=== PATIENT | male | born 1940 | race Caucasian/White ===

== ENCOUNTER 2019-05-02 02:29 | Inpatient (IN) | payer MEDICARE, BC ==
[2019-05-02] VITALS (11 sets, daily range): BP systolic 107–149; BP diastolic 68–92
[~2019-05-02] VITALS: Ht 177.8 cm; Wt 75.5 kg
[2019-05-02 02:52] LABS: BASOPHILS % (AUTO) 0.3 % (0-1); EOSINOPHILS % (AUTO) 0.2 % (0-6); HEMATOCRIT 28.9 % (42.0-52.0); HEMOGLOBIN 9.8 g/dl (14.0-17.9); LYMPHOCYTES # (AUTO) 0.4 X10'3 (1.1-4.8); LYMPHOCYTES % (AUTO) 5.6 % (21-51); MEAN CORPUSCULAR HEMOGLOBIN 25.5 PG (27.0-31.0); MEAN CORPUSCULAR VOLUME 75.1 FL (78-98); MEAN PLATELET VOLUME 7.2 FL (7.4-10.4); MONOCYTES # (AUTO) 0.4 X10'3 (0-0.9); MONOCYTES % (AUTO) 5.5 % (2-12); NEUTROPHILS # (AUTO) 6.9 X10'3 (1.8-7.7); NEUTROPHILS % (AUTO) 88.4 % (42-75); PLATELET COUNT 215 X10'3 (140-440); RED BLOOD COUNT 3.84 X10'6 (4.70-6.10); WHITE BLOOD COUNT 7.8 X10'3 (4.5-11.0)
--- NOTE | 2019-05-02 02:59 | NUR ---
Dr. Aguilar notified of bladder scan showing >999 mL urine. Order for quintana catheter given by Dr. Aguilar.
[2019-05-02 03:08] LABS: CLARITY,URINE CLEAR (Clear); COLOR,URINE YELLOW (Yellow); GLUCOSE, URINE NEGATIVE (Neg); KETONES,URINE TRACE mg/dl (Neg); LEUKOCYTE ESTERASE ,URINE NEGATIVE (Neg); NITRITES, URINE NEGATIVE (Neg); OCCULT BLOOD,URINE NEGATIVE (Neg); PROTEIN,URINE 30 mg/dl (Neg); UROBILINOGEN,URINE 0.2 E.U/dL (0.2-1.0)
[2019-05-02 03:08] LABS: ALANINE AMINOTRANSFERASE 47 U/L (12-78); ALBUMIN 3.6 G/DL (3.4-5.0); ALBUMIN/GLOBULIN RATIO 1.2 (1.1-1.5); ALKALINE PHOSPHATASE 72 IU/L (46-116); ANION GAP 11 (8-16); ASPARTATE AMINO TRANSFERASE 22 U/L (10-37); BILIRUBIN,TOTAL 0.7 MG/DL (0.1-1.0); BLOOD UREA NITROGEN 11 MG/DL (7-18); BUN/CREATININE RATIO 12.6 (5.4-32.0); CHLORIDE 79 MMOL/L (99-107); CREATININE 0.87 MG/DL (0.60-1.10); GLUCOSE 162 MG/DL (70-104); MAGNESIUM 1.4 MG/DL (1.5-2.4); PHOSPHORUS 3.6 MG/DL (2.3-4.5); POTASSIUM 4.4 MMOL/L (3.5-5.1); TOTAL CARBON DIOXIDE 23.5 MMOL/L (24-32); TOTAL PROTEIN 6.5 G/DL (6.4-8.2); eGFR 85 ML/MIN
[2019-05-02 03:11] LABS: SODIUM 113 MMOL/L (135-145)
[2019-05-02 03:15] LABS: UA COLLECTION TYPE FOLEY CATH
[2019-05-02 03:17] LABS: BACTERIA,URINE NONE SEEN /HPF (Neg); MUCUS STRANDS NONE SEEN /LPF (Neg); RBC,URINE 0-2 /HPF (0-2); SQUAMOUS EPITHELIAL CELL,UR FEW /LPF (FEW); WBC,URINE NONE SEEN /HPF (0-4)
[2019-05-02] MEDS ORDERED: DOXA2TAB2 PO (03:30)
[2019-05-02] MEDS ORDERED: ATOR10TA70 PO (03:30)
[2019-05-02] MEDS ORDERED: NORT10CA5 PO (03:30)
[2019-05-02] MEDS ORDERED: METF500T PO (03:30)
[2019-05-02] MEDS ORDERED: LEUP45SY IM (03:30)
[2019-05-02] MEDS ORDERED: DILT-36 PO (03:30)
[2019-05-02] MEDS ORDERED: LEVO88TA2 PO (03:30)
[2019-05-02] MEDS ORDERED: ASPI-1265 PO (03:30)
[2019-05-02] MEDS ORDERED: DULO-31 PO (03:30)
[2019-05-02] MEDS ORDERED: DOXA4TAB3 PO (03:30)
[2019-05-02] MEDS ORDERED: BICA50TA7 PO (03:30)
[2019-05-02] MEDS ORDERED: LEUPROLIDE ACETATE 45 MG IM SCH (03:45)
[2019-05-02] MEDS ORDERED: normal saline 1000ml 1,000 ML IV SCH (03:46)
[2019-05-02] MEDS ORDERED: HYDROcodone/acetaminophen 5mg/325mg tablet PO PRN (03:50)
[2019-05-02] MEDS ORDERED: mag hydrox/Alum hydrox/simeth 30ml oral suspension PO PRN (03:50)
[2019-05-02] MEDS ORDERED: MESSAGE TO PHARMACY PO ONE (03:50)
[2019-05-02] MEDS ORDERED: magnesium hydroxide 30ml (MOM) UD suspension PO PRN (03:50)
[2019-05-02] MEDS ORDERED: glucagon, human recombinant 1mg kit SUBCUT PRN (03:50)
[2019-05-02] MEDS ORDERED: morphine 2 MG/ML inj. syringe IV PRN ×2 (03:50)
[2019-05-02] MEDS ORDERED: dextrose 50%-water 50ml dispensing syringe IV PRN ×2 (03:50)
[2019-05-02] MEDS ORDERED: dextrose ORAL solution 15 GM/59 ML bottle PO PRN ×2 (03:50)
[2019-05-02] MEDS ORDERED: acetaminophen 325mg tablet PO PRN (03:50)
[2019-05-02] MEDS ORDERED: ondansetron/PF 4mg/2ml inj IV PRN (03:50)
[2019-05-02 04:12] LABS: HEMOGLOBIN A1C 6.9 % (4.5-6.2)
--- NOTE | 2019-05-02 06:00 | NUR ---
Patient in room ORTHO 4023. I have received report from Johanna SCHOFIELD and had the opportunity to ask questions and assume patient care.
--- NOTE | 2019-05-02 06:11 | NUR ---
REPORT GIVEN TO CHANDU ALATORRE.
--- NOTE | 2019-05-02 06:13 | NUR ---
Patient in room ORTHO 4023. I have received report from Marie and had the opportunity to ask questions and assume patient care. Addendum: 05/02/19 at 0614 by Michael WHITEHEAD Amended: Links added.
--- NOTE | 2019-05-02 07:53 | NUR ---
PAGER ID: [phone] MESSAGE: RE: [id number] Esequiel Peter. Magnesium is 1.4, do you want him on K/MG replacement? [place] [id number]
[2019-05-02] MEDS ORDERED: duloxetine 30mg CAPSULE.DR PO SCH (08:00)
[2019-05-02] MEDS: LEVOTHYROXINE 88 MCG PO SCH (08:00)
[2019-05-02] MEDS ORDERED: levoTHYROXINE 88mcg tablet PO SCH (08:00)
[2019-05-02] MEDS ORDERED: metFORMIN 500mg tablet PO SCH (08:00)
[2019-05-02] MEDS: atorvastatin 10mg tablet PO SCH (08:07)
[2019-05-02] MEDS: aspirin 81mg tab.chew PO SCH (08:09)
[2019-05-02] MEDS: diltiazem CD 180mg cap (once-daily) PO SCH (08:09)
[2019-05-02] MEDS: doxazosin mesylate 2mg tablet PO SCH ×2 (08:10→20:00)
[2019-05-02] MEDS ORDERED: magnesium 4gm in 100ml NS 100 ML IV PRN (08:15)
[2019-05-02] MEDS ORDERED: potassium Cl 20 mEq SR tablet PO PRN ×2 (08:15)
[2019-05-02] MEDS ORDERED: potassium CL 10mEq/100ml bag 100 ML IV PRN (08:15)
[2019-05-02] MEDS ORDERED: magnesium Cl slow-release 64mg tablet PO PRN (08:15)
[2019-05-02] MEDS: heparin, porcine 5000 units/ml vial SQ SCH ×2 (08:15→19:59)
[2019-05-02 09:18] LABS: ALBUMIN 3.2 G/DL (3.4-5.0); ANION GAP 6 (8-16); BLOOD UREA NITROGEN 13 MG/DL (7-18); BUN/CREATININE RATIO 16.3 (5.4-32.0); CALCIUM 8.3 MG/DL (8.5-10.1); CHLORIDE 80 MMOL/L (99-107); GLUCOSE 174 MG/DL (70-104); TOTAL CARBON DIOXIDE 27.1 MMOL/L (24-32); eGFR > 90 ML/MIN
[2019-05-02 09:23] LABS: SODIUM 113 MMOL/L (135-145)
--- NOTE | 2019-05-02 09:29 | NUR ---
PAGER ID: [phone] MESSAGE: RE: [id number] Esequiel Peter. Critical lab; NA 113, no change from 6 hours ago. Patient on NS@[address] [place] [address] [id number]
[2019-05-02 09:42] LABS: % IRON SATURATION 4 % (11-46); IRON 13 UG/DL (53-167); TOTAL IRON BINDING CAPACITY 358 UG/DL (259-388)
[2019-05-02 11:33] LABS: SODIUM,URINE RANDOM 20 MEQ/L
[2019-05-02 11:35] LABS: OSMOLALITY UA 473 MOSM/K (50-1400)
--- NOTE | 2019-05-02 11:46 | NUR ---
DM Consult: Pt A1C <7 and not appropriate for DM ed at this time. Addendum: 05/02/19 at [address] Amended: Links added.
--- NOTE | 2019-05-02 11:47 | NUR ---
Student Medication Administration:For this medication-pass time frame [id number], all medications were reviewed,administered and documented per hospital policy by Michael Puente. Student documentation:I have reviewed and agree with all interventions, assessments performed and documented by Michael Puente.
--- NOTE | 2019-05-02 12:29 | NUR ---
Problems reprioritized. Patient report given, questions answered & plan of care reviewed with Marie. Addendum: 05/02/19 at 1229 by Michael WHITEHEAD Amended: Links added.
[2019-05-02] MEDS: iron sucrose complex injection 200 MG in normal saline 100ml IV soln 100 ML IV SCH (14:11)
[2019-05-02] MEDS ORDERED: sodium chloride 3% IV.soln 100 ML IV SCH (15:00)
[2019-05-02 15:02] LABS: ALBUMIN 3.1 G/DL (3.4-5.0); ANION GAP 2 (8-16); BLOOD UREA NITROGEN 12 MG/DL (7-18); CALCIUM 8.4 MG/DL (8.5-10.1); CHLORIDE 83 MMOL/L (99-107); CREATININE 0.92 MG/DL (0.60-1.10); GLUCOSE 155 MG/DL (70-104); POTASSIUM 4.4 MMOL/L (3.5-5.1); TOTAL CARBON DIOXIDE 27.2 MMOL/L (24-32); eGFR 80 ML/MIN
[2019-05-02 15:04] LABS: SODIUM 112 MMOL/L (135-145)
--- NOTE | 2019-05-02 15:50 | NUR ---
Transferred patient to ICU room 2040. Gave report to Maris SCHOFIELD. All belongings sent down with patient
--- NOTE | 2019-05-02 16:00 | NUR ---
Received patient from Ortho floor.
[2019-05-02 16:08] LABS: ALBUMIN 3.2 G/DL (3.4-5.0); ANION GAP 6 (8-16); BLOOD UREA NITROGEN 13 MG/DL (7-18); BUN/CREATININE RATIO 14.3 (5.4-32.0); CALCIUM 8.4 MG/DL (8.5-10.1); CHLORIDE 82 MMOL/L (99-107); CREATININE 0.91 MG/DL (0.60-1.10); GLUCOSE 149 MG/DL (70-104); POTASSIUM 4.3 MMOL/L (3.5-5.1); TOTAL CARBON DIOXIDE 25.4 MMOL/L (24-32); eGFR 81 ML/MIN
[2019-05-02 16:12] LABS: SODIUM 113 MMOL/L (135-145)
[2019-05-02 17:16] LABS: OSMOLALITY UA 623 MOSM/K (50-1400)
[2019-05-02 17:23] LABS: SODIUM,URINE RANDOM < 15 MEQ/L
[2019-05-02 17:31] LABS: ALBUMIN 3.1 G/DL (3.4-5.0); ANION GAP 8 (8-16); BLOOD UREA NITROGEN 13 MG/DL (7-18); BUN/CREATININE RATIO 14.8 (5.4-32.0); CALCIUM 8.3 MG/DL (8.5-10.1); CHLORIDE 82 MMOL/L (99-107); CREATININE 0.88 MG/DL (0.60-1.10); GLUCOSE 135 MG/DL (70-104); POTASSIUM 4.4 MMOL/L (3.5-5.1); eGFR 84 ML/MIN
[2019-05-02 17:35] LABS: SODIUM 113 MMOL/L (135-145)
[2019-05-02] MEDS ORDERED: normal saline 1000ml 1,000 ML IVB ONE (17:45)
[2019-05-02 17:55] LABS: ALBUMIN 3.2 G/DL (3.4-5.0); ANION GAP 7 (8-16); BLOOD UREA NITROGEN 14 MG/DL (7-18); BUN/CREATININE RATIO 15.6 (5.4-32.0); CALCIUM 8.4 MG/DL (8.5-10.1); CHLORIDE 82 MMOL/L (99-107); GLUCOSE 139 MG/DL (70-104); POTASSIUM 4.5 MMOL/L (3.5-5.1); TOTAL CARBON DIOXIDE 25.1 MMOL/L (24-32); eGFR 82 ML/MIN
[2019-05-02 17:58] LABS: SODIUM 114 MMOL/L (135-145)
--- NOTE | 2019-05-02 18:26 | NUR ---
Patient in room ICU 2040. I have received report from Jasmyne SCHOFIELD, and had the opportunity to ask questions and assume patient care.
--- NOTE | 2019-05-02 18:28 | NUR ---
Report given to CHANDU Pollack
--- NOTE | 2019-05-02 19:15 | NUR ---
PT is sitting up in bed, is at bedside assisting PT with his dinner. No s/s of distress noted at this time. VSS. PT is on RA and tolerating well, O2 sat >94%. Morrison in place draining to gravity. Bed is locked and low. Call light is within reach. Will continue to monitor.
[2019-05-02 19:41] LABS: SODIUM,URINE RANDOM < 15 MEQ/L
[2019-05-02 19:45] LABS: OSMOLALITY UA 639 MOSM/K (50-1400)
[2019-05-02 19:48] LABS: ANION GAP 7 (8-16); BLOOD UREA NITROGEN 13 MG/DL (7-18); CALCIUM 7.6 MG/DL (8.5-10.1); CHLORIDE 85 MMOL/L (99-107); CREATININE 0.81 MG/DL (0.60-1.10); GLUCOSE 169 MG/DL (70-104); POTASSIUM 4.1 MMOL/L (3.5-5.1); TOTAL CARBON DIOXIDE 22.7 MMOL/L (24-32); eGFR > 90 ML/MIN
[2019-05-02 19:50] LABS: SODIUM 115 MMOL/L (135-145)
--- NOTE | 2019-05-02 19:55 | NUR ---
Received critical NA of 115. GRETCHEN Stout notified, awaiting orders. Will continue to monitor.
[2019-05-02] MEDS: polyethylene glycol 3350 17gm powd pack PO SCH (20:32)
[2019-05-02] MEDS ORDERED: sodium chloride 3% IV.soln 100 ML IV ONE (20:45)
[2019-05-02] MEDS: insulin glargine (Lantus) pen - multi-dose SQ SCH (21:00)
[2019-05-02] MEDS: nortriptyline 10mg capsule PO SCH (21:50)
[2019-05-03] VITALS (24 sets, daily range): BP systolic 108–136; BP diastolic 62–88
[2019-05-03 00:59] LABS: SODIUM,URINE RANDOM < 15 MEQ/L
--- NOTE | 2019-05-03 01:05 | NUR ---
Received critical NA of 115. GRETCHEN Stout notified, order placed for 3% Sodium Chloride. Will administer when it arrives from pharmacy.
[2019-05-03 01:07] LABS: OSMOLALITY UA 659 MOSM/K (50-1400)
[2019-05-03] MEDS ORDERED: sodium chloride 3% IV.soln 100 ML IV ONE (01:15)
--- NOTE | 2019-05-03 01:40 | NUR ---
Pharmacy called to inform nursing that they are out of 3% Sodium and were contacting Lesia. Will keep SPA EXPERIENCE COORDINATOR Argelia informed of delay. Will continue to monitor.
[2019-05-03 04:58] LABS: BASOPHILS % (AUTO) 0.2 % (0-1); EOSINOPHILS # (AUTO) 0.1 X10'3 (0-0.9); EOSINOPHILS % (AUTO) 0.9 % (0-6); HEMATOCRIT 27.3 % (42.0-52.0); HEMOGLOBIN 9.1 g/dl (14.0-17.9); LYMPHOCYTES # (AUTO) 0.4 X10'3 (1.1-4.8); LYMPHOCYTES % (AUTO) 6.5 % (21-51); MEAN CORPUSCULAR HEMOGLOBIN 25.3 PG (27.0-31.0); MEAN CORPUSCULAR HGB CONC 33.3 g/dL (33.0-36.5); MEAN CORPUSCULAR VOLUME 75.9 FL (78-98); MEAN PLATELET VOLUME 7.3 FL (7.4-10.4); MONOCYTES # (AUTO) 0.7 X10'3 (0-0.9); MONOCYTES % (AUTO) 10.1 % (2-12); NEUTROPHILS # (AUTO) 5.3 X10'3 (1.8-7.7); NEUTROPHILS % (AUTO) 82.3 % (42-75); PLATELET COUNT 191 X10'3 (140-440); RED BLOOD COUNT 3.59 X10'6 (4.70-6.10); RED CELL DISTRIBUTION WIDTH 16.2 % (11.5-14.5); WHITE BLOOD COUNT 6.5 X10'3 (4.5-11.0)
[2019-05-03 05:04] LABS: OSMOLALITY UA 626 MOSM/K (50-1400)
[2019-05-03 05:06] LABS: ANION GAP 8 (8-16); BLOOD UREA NITROGEN 13 MG/DL (7-18); BUN/CREATININE RATIO 15.9 (5.4-32.0); CALCIUM 7.8 MG/DL (8.5-10.1); CHLORIDE 85 MMOL/L (99-107); CREATININE 0.82 MG/DL (0.60-1.10); GLUCOSE 119 MG/DL (70-104); MAGNESIUM 1.5 MG/DL (1.5-2.4); POTASSIUM 3.9 MMOL/L (3.5-5.1); TOTAL CARBON DIOXIDE 24.1 MMOL/L (24-32); eGFR > 90 ML/MIN
[2019-05-03 05:10] LABS: SODIUM,URINE RANDOM 27 MEQ/L
--- NOTE | 2019-05-03 05:10 | NUR ---
Received critical NA of 117. GRETCHEN Stout notified. Order received to start NS @ 125ml/hr.
[2019-05-03 05:11] LABS: SODIUM 117 MMOL/L (135-145)
[2019-05-03] MEDS: normal saline 1000ml 1,000 ML IV SCH ×3 (05:32→20:27)
--- NOTE | 2019-05-03 06:33 | NUR ---
Problems reprioritized. Patient report given, questions answered & plan of care reviewed with Purnima SCHOFIELD.
--- NOTE | 2019-05-03 06:42 | NUR ---
Patient in room ICU 2040. I have received report from CHANDU Pollack and had the opportunity to ask questions and assume patient care.
[2019-05-03] MEDS: diltiazem CD 180mg cap (once-daily) PO SCH (07:56)
[2019-05-03] MEDS: doxazosin mesylate 2mg tablet PO SCH ×2 (07:56→20:27)
[2019-05-03] MEDS: atorvastatin 10mg tablet PO SCH (07:56)
[2019-05-03] MEDS: aspirin 81mg tab.chew PO SCH (07:56)
[2019-05-03] MEDS: heparin, porcine 5000 units/ml vial SQ SCH ×2 (07:57→20:27)
[2019-05-03] MEDS: iron sucrose complex injection 200 MG in normal saline 100ml IV soln 100 ML IV SCH (07:58)
[2019-05-03] MEDS: LEVOTHYROXINE 88 MCG PO SCH (08:00)
[2019-05-03] MEDS: DOBUTamine-DoBUTrex 500mg/D5W 250 ML IV SCH (10:02)
[2019-05-03 16:41] LABS: SODIUM,URINE RANDOM < 15 MEQ/L
[2019-05-03 16:56] LABS: OSMOLALITY UA 528 MOSM/K (50-1400)
--- NOTE | 2019-05-03 18:45 | NUR ---
Patient in room ICU 2040. I have received report from Purnima SCHOFIELD, and had the opportunity to ask questions and assume patient care.
--- NOTE | 2019-05-03 19:15 | NUR ---
PT is sitting up in bed, is at bedside assisting PT with his dinner. No s/s of distress noted at this time. VSS. PT is on RA and tolerating well, O2 sat >95%. Morrison in place draining to gravity. Bed is locked and low. Call light is within reach. Will continue to monitor.
[2019-05-03] MEDS: nortriptyline 10mg capsule PO SCH (20:27)
[2019-05-03] MEDS: polyethylene glycol 3350 17gm powd pack PO SCH (20:27)
[2019-05-03] MEDS: insulin glargine (Lantus) pen - multi-dose SQ SCH (21:00)
--- NOTE | 2019-05-03 22:30 | NUR ---
PT resting in bed with no s/s of distress noted at this time. VSS. Bed is locked and low. Call light is within reach. Will continue to monitor.
[2019-05-04] VITALS (24 sets, daily range): BP systolic 86–146; BP diastolic 50–89
[2019-05-04 04:45] LABS: BASOPHILS % (AUTO) 0.5 % (0-1); EOSINOPHILS # (AUTO) 0.2 X10'3 (0-0.9); EOSINOPHILS % (AUTO) 2.7 % (0-6); HEMATOCRIT 27.8 % (42.0-52.0); HEMOGLOBIN 9.3 g/dl (14.0-17.9); LYMPHOCYTES # (AUTO) 0.6 X10'3 (1.1-4.8); LYMPHOCYTES % (AUTO) 8.7 % (21-51); MEAN CORPUSCULAR HEMOGLOBIN 25.3 PG (27.0-31.0); MEAN CORPUSCULAR HGB CONC 33.5 g/dL (33.0-36.5); MEAN CORPUSCULAR VOLUME 75.6 FL (78-98); MEAN PLATELET VOLUME 7.6 FL (7.4-10.4); MONOCYTES # (AUTO) 0.7 X10'3 (0-0.9); MONOCYTES % (AUTO) 9.2 % (2-12); NEUTROPHILS # (AUTO) 5.9 X10'3 (1.8-7.7); NEUTROPHILS % (AUTO) 78.9 % (42-75); PLATELET COUNT 191 X10'3 (140-440); RED BLOOD COUNT 3.67 X10'6 (4.70-6.10); RED CELL DISTRIBUTION WIDTH 16.6 % (11.5-14.5); WHITE BLOOD COUNT 7.5 X10'3 (4.5-11.0)
[2019-05-04 04:54] LABS: ANION GAP 8 (8-16); BLOOD UREA NITROGEN 11 MG/DL (7-18); BUN/CREATININE RATIO 15.3 (5.4-32.0); CHLORIDE 88 MMOL/L (99-107); CREATININE 0.72 MG/DL (0.60-1.10); GLUCOSE 118 MG/DL (70-104); MAGNESIUM 1.6 MG/DL (1.5-2.4); POTASSIUM 3.8 MMOL/L (3.5-5.1); TOTAL CARBON DIOXIDE 24.2 MMOL/L (24-32); eGFR > 90 ML/MIN
[2019-05-04 04:55] LABS: SODIUM 120 MMOL/L (135-145)
--- NOTE | 2019-05-04 07:06 | NUR ---
Problems reprioritized. Patient report given, questions answered & plan of care reviewed with Sasha SCHOFIELD.
[2019-05-04] MEDS: aspirin 81mg tab.chew PO SCH (08:33)
[2019-05-04] MEDS: DOBUTamine-DoBUTrex 500mg/D5W 250 ML IV SCH (08:34)
[2019-05-04] MEDS: atorvastatin 10mg tablet PO SCH (08:34)
[2019-05-04] MEDS: doxazosin mesylate 2mg tablet PO SCH ×2 (08:34→20:18)
[2019-05-04] MEDS: iron sucrose complex injection 200 MG in normal saline 100ml IV soln 100 ML IV SCH (08:35)
[2019-05-04] MEDS: heparin, porcine 5000 units/ml vial SQ SCH ×2 (08:41→20:18)
[2019-05-04] MEDS: LEVOTHYROXINE 88 MCG PO SCH (08:42)
[2019-05-04] MEDS: diltiazem CD 180mg cap (once-daily) PO SCH (08:54)
[2019-05-04] MEDS ORDERED: lisinopril 2.5mg tablet PO SCH (11:30)
[2019-05-04] MEDS ORDERED: carvedilol 6.25mg tablet PO SCH (11:30)
[2019-05-04 14:32] LABS: ALBUMIN 2.7 G/DL (3.4-5.0); ANION GAP 6 (8-16); BLOOD UREA NITROGEN 10 MG/DL (7-18); BUN/CREATININE RATIO 12.7 (5.4-32.0); CALCIUM 7.4 MG/DL (8.5-10.1); CHLORIDE 89 MMOL/L (99-107); CREATININE 0.79 MG/DL (0.60-1.10); GLUCOSE 182 MG/DL (70-104); POTASSIUM 4.1 MMOL/L (3.5-5.1); TOTAL CARBON DIOXIDE 24.4 MMOL/L (24-32); eGFR > 90 ML/MIN
[2019-05-04 14:36] LABS: SODIUM 119 MMOL/L (135-145)
--- NOTE | 2019-05-04 16:35 | NUR ---
Pt. Hypotensive to systolic of 86 w/ MAP >60, heart rate now in the 50s w/ frequent PVCs. Dr. Tapia notified. Dr. Tapia discontinued the coreg. Pt. sodium now [address] Tapia notified, no further intervention per Dr. Tapia. Pt. family waiting on Dr. Gan for update regarding cardiovascular consult.
--- NOTE | 2019-05-04 19:30 | NUR ---
PT is sitting up in bed, is at bedside. No s/s of distress noted at this time. VSS. PT is on RA and tolerating well, O2 sat >95%. Morrison in place draining to gravity. Bed is locked and low. Call light is within reach. Will continue to monitor.
[2019-05-04] MEDS: carVEDilol 3.125mg tablet PO SCH (19:40)
[2019-05-04] MEDS ORDERED: spironolactone 25 MG tablet PO ONE (20:00)
[2019-05-04] MEDS: normal saline 1000ml 1,000 ML IV SCH (20:16)
[2019-05-04] MEDS: polyethylene glycol 3350 17gm powd pack PO SCH (20:17)
[2019-05-04] MEDS: nortriptyline 10mg capsule PO SCH (20:18)
[2019-05-04] MEDS: insulin glargine (Lantus) pen - multi-dose SQ SCH (20:18)
[2019-05-05] VITALS (23 sets, daily range): BP systolic 110–143; BP diastolic 65–92
[2019-05-05 05:19] LABS: BASOPHILS % (AUTO) 0.4 % (0-1); EOSINOPHILS # (AUTO) 0.2 X10'3 (0-0.9); EOSINOPHILS % (AUTO) 2.5 % (0-6); HEMATOCRIT 28.9 % (42.0-52.0); HEMOGLOBIN 9.7 g/dl (14.0-17.9); LYMPHOCYTES # (AUTO) 0.7 X10'3 (1.1-4.8); LYMPHOCYTES % (AUTO) 9.5 % (21-51); MEAN CORPUSCULAR HEMOGLOBIN 25.3 PG (27.0-31.0); MEAN CORPUSCULAR HGB CONC 33.7 g/dL (33.0-36.5); MEAN CORPUSCULAR VOLUME 75.1 FL (78-98); MEAN PLATELET VOLUME 7.2 FL (7.4-10.4); MONOCYTES # (AUTO) 0.6 X10'3 (0-0.9); NEUTROPHILS # (AUTO) 5.6 X10'3 (1.8-7.7); NEUTROPHILS % (AUTO) 79.6 % (42-75); PLATELET COUNT 218 X10'3 (140-440); RED BLOOD COUNT 3.85 X10'6 (4.70-6.10); RED CELL DISTRIBUTION WIDTH 16.5 % (11.5-14.5); WHITE BLOOD COUNT 7.1 X10'3 (4.5-11.0)
[2019-05-05 05:28] LABS: ALBUMIN 2.9 G/DL (3.4-5.0); ANION GAP 6 (8-16); BLOOD UREA NITROGEN 11 MG/DL (7-18); BUN/CREATININE RATIO 14.3 (5.4-32.0); CHLORIDE 90 MMOL/L (99-107); CREATININE 0.77 MG/DL (0.60-1.10); GLUCOSE 114 MG/DL (70-104); MAGNESIUM 1.7 MG/DL (1.5-2.4); SODIUM 123 MMOL/L (135-145); TOTAL CARBON DIOXIDE 26.6 MMOL/L (24-32); eGFR > 90 ML/MIN
[2019-05-05] MEDS: duloxetine 30mg CAPSULE.DR PO SCH (08:48)
[2019-05-05] MEDS: aspirin 81mg tab.chew PO SCH (08:48)
[2019-05-05] MEDS: LEVOTHYROXINE 88 MCG PO SCH (08:48)
[2019-05-05] MEDS: doxazosin mesylate 2mg tablet PO SCH ×2 (08:48→21:08)
[2019-05-05] MEDS: atorvastatin 10mg tablet PO SCH (08:48)
[2019-05-05] MEDS: carVEDilol 3.125mg tablet PO SCH ×2 (08:49→21:08)
[2019-05-05] MEDS: heparin, porcine 5000 units/ml vial SQ SCH ×2 (08:49→21:08)
[2019-05-05] MEDS: iron sucrose complex injection 200 MG in normal saline 100ml IV soln 100 ML IV SCH (08:49)
[2019-05-05] MEDS: spironolactone 25 MG tablet PO SCH (08:49)
[2019-05-05] MEDS: DOBUTamine-DoBUTrex 500mg/D5W 250 ML IV SCH (09:37)
[2019-05-05] MEDS ORDERED: lisinopril 2.5mg tablet PO SCH (12:00)
[2019-05-05] MEDS: losartan 50mg tablet PO SCH (12:46)
[2019-05-05] MEDS ORDERED: diphenhydrAMINE 25mg capsule PO PRN (17:35)
--- NOTE | 2019-05-05 18:34 | NUR ---
Patient in room ICU 2040. I have received report from Sasha SCHOFIELD in the ICU and had the opportunity to ask questions and now awaiting arrival of patient to the PCU unit.
--- NOTE | 2019-05-05 19:05 | NUR ---
Patient arrived to the PCU unit at this time. He is accompanied by and daughter. He is alert and oriented and able to make his needs known. He denies any pain. Vitals stable. He is on room air. Morrison cath in place. He is on Dobumatine gtt at 5mcg and NS at 40mls/hour. Safety precautions in place. Will continue to monitor.
--- NOTE | 2019-05-05 19:10 | NUR ---
Report called to receiving nurse by Day shift RN. Transferred via hospital bed on portable monitor. Belongings . Special Issues communicated to receiving nurse.
[2019-05-05] MEDS: insulin glargine (Lantus) pen - multi-dose SQ SCH (21:00)
[2019-05-05] MEDS: nortriptyline 10mg capsule PO SCH (21:08)
[2019-05-05] MEDS: polyethylene glycol 3350 17gm powd pack PO SCH (21:08)
[2019-05-05] MEDS: normal saline 1000ml 1,000 ML IV SCH (21:38)
[2019-05-06] VITALS (17 sets, daily range): BP systolic 101–144; BP diastolic 56–101
[2019-05-06 05:26] LABS: BASOPHILS % (AUTO) 0.5 % (0-1); EOSINOPHILS # (AUTO) 0.1 X10'3 (0-0.9); EOSINOPHILS % (AUTO) 2.1 % (0-6); HEMATOCRIT 28.8 % (42.0-52.0); HEMOGLOBIN 9.5 g/dl (14.0-17.9); LYMPHOCYTES # (AUTO) 0.5 X10'3 (1.1-4.8); LYMPHOCYTES % (AUTO) 8.2 % (21-51); MEAN CORPUSCULAR HEMOGLOBIN 25.6 PG (27.0-31.0); MEAN CORPUSCULAR HGB CONC 33.1 g/dL (33.0-36.5); MEAN CORPUSCULAR VOLUME 77.3 FL (78-98); MEAN PLATELET VOLUME 7.2 FL (7.4-10.4); MONOCYTES # (AUTO) 0.5 X10'3 (0-0.9); MONOCYTES % (AUTO) 7.4 % (2-12); NEUTROPHILS # (AUTO) 5.3 X10'3 (1.8-7.7); NEUTROPHILS % (AUTO) 81.8 % (42-75); PLATELET COUNT 231 X10'3 (140-440); RED BLOOD COUNT 3.73 X10'6 (4.70-6.10); RED CELL DISTRIBUTION WIDTH 16.9 % (11.5-14.5); WHITE BLOOD COUNT 6.5 X10'3 (4.5-11.0)
[2019-05-06 05:41] LABS: ALBUMIN 2.8 G/DL (3.4-5.0); ANION GAP 5 (8-16); BLOOD UREA NITROGEN 10 MG/DL (7-18); BUN/CREATININE RATIO 11.8 (5.4-32.0); CALCIUM 7.7 MG/DL (8.5-10.1); CHLORIDE 91 MMOL/L (99-107); CREATININE 0.85 MG/DL (0.60-1.10); GLUCOSE 124 MG/DL (70-104); MAGNESIUM 1.9 MG/DL (1.5-2.4); POTASSIUM 4.2 MMOL/L (3.5-5.1); SODIUM 123 MMOL/L (135-145); TOTAL CARBON DIOXIDE 26.9 MMOL/L (24-32); eGFR 88 ML/MIN
--- NOTE | 2019-05-06 06:21 | NUR ---
Problems reprioritized. Patient report given, questions answered & plan of care reviewed with Zoe RN.
--- NOTE | 2019-05-06 06:55 | NUR ---
Patient in room PCU 3018. I have received report from CHANDU Baum and had the opportunity to ask questions and assume patient care. Pt is sleeping. Will continue to monitor.
[2019-05-06] MEDS: doxazosin mesylate 2mg tablet PO SCH ×2 (07:41→20:41)
[2019-05-06] MEDS: heparin, porcine 5000 units/ml vial SQ SCH (07:41)
[2019-05-06] MEDS: atorvastatin 10mg tablet PO SCH (07:41)
[2019-05-06] MEDS: aspirin 81mg tab.chew PO SCH (07:42)
[2019-05-06] MEDS: losartan 50mg tablet PO SCH (07:42)
[2019-05-06] MEDS: carVEDilol 3.125mg tablet PO SCH (07:42)
[2019-05-06] MEDS: duloxetine 30mg CAPSULE.DR PO SCH (07:42)
[2019-05-06] MEDS: spironolactone 25 MG tablet PO SCH (07:42)
[2019-05-06] MEDS: LEVOTHYROXINE 88 MCG PO SCH (07:43)
[2019-05-06] MEDS: DOBUTamine-DoBUTrex 500mg/D5W 250 ML IV SCH (07:46)
--- NOTE | 2019-05-06 11:12 | NUR ---
Initial: Pt admit with symptomatic hyponatremia with Na 113 on admit. Serum Na trending towards WNL at 123 today. Pt with CHF and EF has dropped from 60% to about 20-25% per MD notes, cardiology following. Pt currently on CHO controlled diet with fluctuating PO intake depending on the meal, averaging 75% likely meeting nutrient needs. [facility]BM 05/06. No nutrition diagnosis at this time. Will continue to follow. Recommendations: 1) Continue CHO controlled diet 2) Monitor need for ONS 3) Routine bowel care 4) Wt per rx Addendum: 05/06/19 at [address] Amended: Links added.
[2019-05-06] MEDS ORDERED: diphenhydrAMINE 50 mg/ml inj ONE (12:08)
[2019-05-06] MEDS ORDERED: hydrocortisone sod succ/PF 100mg/2ml inj. ONE (12:08)
[2019-05-06] MEDS ORDERED: heparin 1,000unit/ml 10ml vial 10 ML ONE (12:09)
[2019-05-06] MEDS ORDERED: iohexol 350MG/ML 100ml bottle IV ONE (12:09)
[2019-05-06] MEDS ORDERED: fentaNYL/PF 50MCG/1 ML 2ML syringe ONE (12:09)
[2019-05-06] MEDS ORDERED: LIDOcaine 1% (10mg/ml)w/preservative injection 20ml MDV ONE (12:09)
[2019-05-06] MEDS ORDERED: midazolam 2 mg/2 ml injection ONE (12:09)
[2019-05-06] MEDS ORDERED: iohexol 350 MG/ML 50ML vial IV ONE (12:09)
[2019-05-06] MEDS ORDERED: famotidine 10mg/ml inj IV ONE (12:20)
[2019-05-06] MEDS ORDERED: diphenhydrAMINE 50 mg/ml inj IV ONE (12:20)
[2019-05-06] MEDS ORDERED: nitroGLYCERIN-Tridil 50MG/D5W 250 ML IV ONE (12:25)
[2019-05-06] MEDS ORDERED: verapamil 2.5 mg/ml inj IV ONE (12:26)
[2019-05-06] MEDS ORDERED: famotidine/PF 10 mg/ml inj IV ONE (13:40)
[2019-05-06] MEDS ORDERED: furosemide 40mg/4ml inj ONE (13:51)
[2019-05-06 14:00] LABS: ISTAT HGB ART 10.2 g/dl (14.0-18.0); ISTAT Hct ART 30 %PCV (42-52); ISTAT O2 SATURATION ARTERIAL 98 % (95-98); ISTAT SOURCE ART
[2019-05-06 14:00] LABS: ISTAT Hct MIX 25 %PCV (42-52); ISTAT O2 SATURATION MIX VENOUS 58 % (60-80); ISTAT SOURCE MIX
[2019-05-06] MEDS: potassium Cl 20 mEq SR tablet PO SCH (15:32)
--- NOTE | 2019-05-06 18:32 | NUR ---
Problems reprioritized. Patient report given, questions answered & plan of care reviewed with CHANDU Baum.
[2019-05-06 19:04] LABS: ANION GAP 7 (8-16); BLOOD UREA NITROGEN 11 MG/DL (7-18); BUN/CREATININE RATIO 12.2 (5.4-32.0); CALCIUM 7.6 MG/DL (8.5-10.1); CHLORIDE 89 MMOL/L (99-107); GLUCOSE 208 MG/DL (70-104); POTASSIUM 3.9 MMOL/L (3.5-5.1); SODIUM 122 MMOL/L (135-145); TOTAL CARBON DIOXIDE 26.3 MMOL/L (24-32); eGFR 82 ML/MIN
[2019-05-06] MEDS ORDERED: traZODone 50mg tablet PO SCH (20:00)
[2019-05-06] MEDS: polyethylene glycol 3350 17gm powd pack PO SCH (20:40)
[2019-05-06] MEDS: nortriptyline 10mg capsule PO SCH (20:40)
[2019-05-06] MEDS: furosemide 40mg/4ml inj IV SCH (20:40)
[2019-05-06] MEDS: carvedilol 6.25mg tablet PO SCH (20:41)
[2019-05-06] MEDS: insulin glargine (Lantus) pen - multi-dose SQ SCH (21:40)
[2019-05-07] VITALS (21 sets, daily range): BP systolic 89–122; BP diastolic 54–76
[2019-05-07] MEDS: normal saline 1000ml 1,000 ML IV SCH (00:28)
[2019-05-07 05:40] LABS: ALBUMIN 2.9 G/DL (3.4-5.0); ANION GAP 8 (8-16); BLOOD UREA NITROGEN 11 MG/DL (7-18); CALCIUM 7.2 MG/DL (8.5-10.1); CHLORIDE 91 MMOL/L (99-107); GLUCOSE 124 MG/DL (70-104); MAGNESIUM 1.7 MG/DL (1.5-2.4); POTASSIUM 3.7 MMOL/L (3.5-5.1); SODIUM 127 MMOL/L (135-145); TOTAL CARBON DIOXIDE 27.9 MMOL/L (24-32); eGFR 73 ML/MIN
[2019-05-07 05:43] LABS: BASOPHILS % (AUTO) 0.3 % (0-1); EOSINOPHILS # (AUTO) 0.2 X10'3 (0-0.9); EOSINOPHILS % (AUTO) 1.5 % (0-6); HEMATOCRIT 32.4 % (42.0-52.0); HEMOGLOBIN 10.7 g/dl (14.0-17.9); LYMPHOCYTES # (AUTO) 0.2 X10'3 (1.1-4.8); LYMPHOCYTES % (AUTO) 1.7 % (21-51); MEAN CORPUSCULAR HEMOGLOBIN 25.3 PG (27.0-31.0); MEAN CORPUSCULAR HGB CONC 32.9 g/dL (33.0-36.5); MEAN CORPUSCULAR VOLUME 76.8 FL (78-98); MEAN PLATELET VOLUME 7.2 FL (7.4-10.4); MONOCYTES # (AUTO) 0.2 X10'3 (0-0.9); MONOCYTES % (AUTO) 1.8 % (2-12); NEUTROPHILS # (AUTO) 10.6 X10'3 (1.8-7.7); NEUTROPHILS % (AUTO) 94.7 % (42-75); PLATELET COUNT 253 X10'3 (140-440); RED BLOOD COUNT 4.22 X10'6 (4.70-6.10); RED CELL DISTRIBUTION WIDTH 16.8 % (11.5-14.5); WHITE BLOOD COUNT 11.1 X10'3 (4.5-11.0)
--- NOTE | 2019-05-07 06:22 | NUR ---
Problems reprioritized. Patient report given, questions answered & plan of care reviewed with Zoe RN.
--- NOTE | 2019-05-07 06:40 | NUR ---
Patient in room PCU 3018. I have received report from CHANDU Baum and had the opportunity to ask questions and assume patient care. Pt sleeping. Will continue to monitor.
[2019-05-07] MEDS: potassium Cl 20 mEq SR tablet PO SCH (07:47)
[2019-05-07] MEDS: furosemide 40mg/4ml inj IV SCH (07:47)
[2019-05-07] MEDS: atorvastatin 10mg tablet PO SCH (07:48)
[2019-05-07] MEDS: duloxetine 30mg CAPSULE.DR PO SCH (07:48)
[2019-05-07] MEDS: losartan 50mg tablet PO SCH (07:48)
[2019-05-07] MEDS: aspirin 81mg tab.chew PO SCH (07:48)
[2019-05-07] MEDS: carvedilol 6.25mg tablet PO SCH (07:48)
[2019-05-07] MEDS: doxazosin mesylate 2mg tablet PO SCH ×2 (07:48→20:20)
[2019-05-07] MEDS: LEVOTHYROXINE 88 MCG PO SCH (07:51)
[2019-05-07] MEDS ORDERED: methylPREDNISolone sod succ 125mg/2ml vial IV ONE (08:15)
[2019-05-07] MEDS: diphenhydrAMINE 50 mg/ml inj IV PRN (08:21)
[2019-05-07] MEDS: DOBUTamine-DoBUTrex 500mg/D5W 250 ML IV SCH ×3 (08:22→19:08)
[2019-05-07] MEDS: spironolactone 25 MG tablet PO SCH (09:39)
[2019-05-07] MEDS: normal saline 1000ml 1,000 ML IV ONE ×2 (10:02→10:06)
[2019-05-07 12:47] LABS: ALBUMIN 2.9 G/DL (3.4-5.0); ANION GAP 7 (8-16); BLOOD UREA NITROGEN 13 MG/DL (7-18); BUN/CREATININE RATIO 13.8 (5.4-32.0); CALCIUM 7.2 MG/DL (8.5-10.1); CHLORIDE 91 MMOL/L (99-107); CREATININE 0.94 MG/DL (0.60-1.10); GLUCOSE 184 MG/DL (70-104); POTASSIUM 4.3 MMOL/L (3.5-5.1); SODIUM 124 MMOL/L (135-145); TOTAL CARBON DIOXIDE 26.4 MMOL/L (24-32); eGFR 78 ML/MIN
[2019-05-07] MEDS ORDERED: magnesium 4gm in 100ml NS 100 ML IV PRN (13:10)
[2019-05-07] MEDS ORDERED: potassium Cl 20 mEq SR tablet PO PRN ×2 (13:10)
[2019-05-07] MEDS ORDERED: potassium CL 10mEq/100ml bag 100 ML IV PRN (13:10)
[2019-05-07] MEDS: insulin Lispro (HumaLOG) vial - multi-dose SQ SCH ×2 (13:52→19:10)
[2019-05-07] MEDS: polyethylene glycol 3350 17gm powd pack PO SCH (15:58)
--- NOTE | 2019-05-07 16:15 | NUR ---
Patient in room PCU 3018. I have received report from CHANDU Enriquez and had the opportunity to ask questions and assume patient care.
--- NOTE | 2019-05-07 18:23 | NUR ---
Problems reprioritized. Patient report given, questions answered & plan of care reviewed with CHANDU Pereira and CHANDU Sanz.
--- NOTE | 2019-05-07 18:30 | NUR ---
Patient in room PCU 3018. I have received report from Linwood SCHOFIELD and had the opportunity to ask questions and assume patient care.
[2019-05-07] MEDS: carVEDilol 3.125mg tablet PO SCH (20:21)
[2019-05-07] MEDS: nortriptyline 10mg capsule PO SCH (20:21)
[2019-05-07] MEDS: furosemide 20 MG/2 ML vial IV SCH (20:21)
[2019-05-07] MEDS ORDERED: traZODone 50mg tablet PO SCH (21:00)
[2019-05-07] MEDS: insulin glargine (Lantus) pen - multi-dose SQ SCH (21:35)
[2019-05-07] MEDS: magnesium Cl slow-release 64mg tablet PO PRN (22:29)
[2019-05-08] VITALS (9 sets, daily range): BP systolic 87–107; BP diastolic 52–75
[2019-05-08] MEDS: magnesium Cl slow-release 64mg tablet PO PRN (02:15)
[2019-05-08 05:43] LABS: BASOPHILS # (AUTO) 0.1 X10'3 (0-0.2); BASOPHILS % (AUTO) 0.5 % (0-1); EOSINOPHILS # (AUTO) 0.1 X10'3 (0-0.9); HEMATOCRIT 29.7 % (42.0-52.0); HEMOGLOBIN 9.9 g/dl (14.0-17.9); LYMPHOCYTES # (AUTO) 0.3 X10'3 (1.1-4.8); LYMPHOCYTES % (AUTO) 2.6 % (21-51); MEAN CORPUSCULAR HEMOGLOBIN 25.5 PG (27.0-31.0); MEAN CORPUSCULAR HGB CONC 33.2 g/dL (33.0-36.5); MEAN CORPUSCULAR VOLUME 76.9 FL (78-98); MEAN PLATELET VOLUME 7.3 FL (7.4-10.4); MONOCYTES # (AUTO) 0.2 X10'3 (0-0.9); MONOCYTES % (AUTO) 1.9 % (2-12); NEUTROPHILS # (AUTO) 11.9 X10'3 (1.8-7.7); PLATELET COUNT 202 X10'3 (140-440); RED BLOOD COUNT 3.86 X10'6 (4.70-6.10); WHITE BLOOD COUNT 12.7 X10'3 (4.5-11.0)
[2019-05-08 06:06] LABS: ALBUMIN 2.8 G/DL (3.4-5.0); ANION GAP 8 (8-16); BLOOD UREA NITROGEN 16 MG/DL (7-18); CALCIUM 7.2 MG/DL (8.5-10.1); CHLORIDE 92 MMOL/L (99-107); CREATININE 0.84 MG/DL (0.60-1.10); GLUCOSE 106 MG/DL (70-104); MAGNESIUM 1.9 MG/DL (1.5-2.4); PHOSPHORUS 2.2 MG/DL (2.3-4.5); POTASSIUM 3.9 MMOL/L (3.5-5.1); SODIUM 125 MMOL/L (135-145); TOTAL CARBON DIOXIDE 24.9 MMOL/L (24-32); eGFR 89 ML/MIN
--- NOTE | 2019-05-08 06:24 | NUR ---
Problems reprioritized. Patient report given, questions answered & plan of care reviewed with Zoe RN.
--- NOTE | 2019-05-08 06:32 | NUR ---
Patient in room PCU 3016. I have received report from Yolis RN and CHANDU Pereira and had the opportunity to ask questions and assume patient care. Pt is sleeping. VSS. Will continue to monitor.
[2019-05-08] MEDS: potassium Cl 20 mEq SR tablet PO SCH (07:31)
[2019-05-08] MEDS: doxazosin mesylate 2mg tablet PO SCH ×2 (07:31→20:26)
[2019-05-08] MEDS: atorvastatin 10mg tablet PO SCH (07:31)
[2019-05-08] MEDS: duloxetine 30mg CAPSULE.DR PO SCH (07:31)
[2019-05-08] MEDS: aspirin 81mg tab.chew PO SCH (07:32)
[2019-05-08] MEDS: diphenhydrAMINE 50 mg/ml inj IV PRN (07:32)
[2019-05-08] MEDS: carVEDilol 3.125mg tablet PO SCH ×2 (07:32→20:26)
[2019-05-08] MEDS: losartan 50mg tablet PO SCH (07:32)
[2019-05-08] MEDS: furosemide 20 MG/2 ML vial IV SCH ×2 (07:33→20:26)
[2019-05-08] MEDS: LEVOTHYROXINE 88 MCG PO SCH (07:34)
[2019-05-08] MEDS: spironolactone 25 MG tablet PO SCH (07:35)
[2019-05-08] MEDS ORDERED: potassium Cl 20 mEq SR tablet PO STA (08:38)
[2019-05-08] MEDS ORDERED: DOBUTamine-DoBUTrex 500mg/D5W 250 ML IV SCH (11:00)
[2019-05-08 11:54] LABS: MAGNESIUM 2.9 MG/DL (1.5-2.4); POTASSIUM 4.2 MMOL/L (3.5-5.1)
--- NOTE | 2019-05-08 12:17 | NUR ---
Trazodone d/c'd. Dr Tapia stated he "told them not to give him trazodone" because the pt is on two other antidepressants. Dr Tapia stated to give the pt Benadryl to help him sleep. The pt received trazodone first on the evening of 05/06. Morning of 05/07, pt was experiencing a rash, which subsided with benadryl; he was also given solumedrol one time. The pt received trazodone a second time the evening of 05/07. This am, the pt had a rash again, accompanied by itching. He was given benadryl, which helped, but the rash has not completely subsided, and he is experiencing itching again. Benadryl to be administered. Trazodone d/c'd.
--- NOTE | 2019-05-08 12:30 | NUR ---
Per the pt's , the trazodone was represcribed by Danae Mackenzie, because the pt's psychiatrist (Dr. Nuno) prescribed nortriptyline, cymbalta, and trazodone. Per the pt's , the pt has been on nortriptyline and cymbalta for "a long time." Per the pt's daughter, the K-dur and trazodone both started wednesday. However the pt received 2 doses of K-dur (40mEq) this morning. The rash spread further up, towards the pt's arms today, and was itchy, which it was not yesterday.
[2019-05-08] MEDS: polyethylene glycol 3350 17gm powd pack PO SCH (15:50)
--- NOTE | 2019-05-08 18:37 | NUR ---
Patient in room PCU 3018. I have received report from Zoe SCHOFIELD and had the opportunity to ask questions and assume patient care.
[2019-05-08] MEDS: insulin Lispro (HumaLOG) vial - multi-dose SQ SCH (19:15)
[2019-05-08] MEDS: nortriptyline 10mg capsule PO SCH (20:26)
[2019-05-08] MEDS: insulin glargine (Lantus) pen - multi-dose SQ SCH (21:47)
[2019-05-09] VITALS (9 sets, daily range): BP systolic 97–107; BP diastolic 50–73
[2019-05-09 04:31] LABS: ALBUMIN 2.9 G/DL (3.4-5.0); ANION GAP 4 (8-16); BASOPHILS # (AUTO) 0.1 X10'3 (0-0.2); BASOPHILS % (AUTO) 0.5 % (0-1); BLOOD UREA NITROGEN 21 MG/DL (7-18); BUN/CREATININE RATIO 19.4 (5.4-32.0); CALCIUM 7.5 MG/DL (8.5-10.1); CHLORIDE 94 MMOL/L (99-107); CREATININE 1.08 MG/DL (0.60-1.10); EOSINOPHILS # (AUTO) 0.5 X10'3 (0-0.9); EOSINOPHILS % (AUTO) 4.1 % (0-6); GLUCOSE 93 MG/DL (70-104); HEMATOCRIT 31.5 % (42.0-52.0); HEMOGLOBIN 10.3 g/dl (14.0-17.9); LYMPHOCYTES # (AUTO) 0.2 X10'3 (1.1-4.8); LYMPHOCYTES % (AUTO) 2.1 % (21-51); MAGNESIUM 2.4 MG/DL (1.5-2.4); MEAN CORPUSCULAR HGB CONC 32.8 g/dL (33.0-36.5); MEAN CORPUSCULAR VOLUME 79.2 FL (78-98); MEAN PLATELET VOLUME 7.5 FL (7.4-10.4); MONOCYTES # (AUTO) 0.2 X10'3 (0-0.9); MONOCYTES % (AUTO) 1.9 % (2-12); NEUTROPHILS # (AUTO) 10.6 X10'3 (1.8-7.7); NEUTROPHILS % (AUTO) 91.4 % (42-75); PHOSPHORUS 2.4 MG/DL (2.3-4.5); PLATELET COUNT 224 X10'3 (140-440); POTASSIUM 4.1 MMOL/L (3.5-5.1); RED BLOOD COUNT 3.97 X10'6 (4.70-6.10); RED CELL DISTRIBUTION WIDTH 17.7 % (11.5-14.5); SODIUM 127 MMOL/L (135-145); TOTAL CARBON DIOXIDE 28.8 MMOL/L (24-32); WHITE BLOOD COUNT 11.6 X10'3 (4.5-11.0); eGFR 66 ML/MIN
--- NOTE | 2019-05-09 05:46 | NUR ---
[place] documentation: I have reviewed and agree with all interventions, assessments performed and documented by Randall SCHOFIELD.
--- NOTE | 2019-05-09 06:18 | NUR ---
Problems reprioritized. Patient report given, questions answered & plan of care reviewed with Avelina SCHOFIELD.
--- NOTE | 2019-05-09 06:30 | NUR ---
Patient in room PCU 3018B. I have received report from Randall SCHOFIELD and Yolis RN and had the opportunity to ask questions and assume patient care.
[2019-05-09] MEDS: carVEDilol 3.125mg tablet PO SCH ×2 (08:00→20:17)
[2019-05-09] MEDS: losartan 50mg tablet PO SCH (08:00)
[2019-05-09] MEDS: furosemide 20 MG/2 ML vial IV SCH ×2 (08:00→20:18)
--- NOTE | 2019-05-09 08:40 | NUR ---
Patient blood pressure checked prior to administering morning medications, BP 98/53, held BP medications for parameters of SBP<100.
[2019-05-09] MEDS: spironolactone 25 MG tablet PO SCH (08:46)
[2019-05-09] MEDS: atorvastatin 10mg tablet PO SCH (08:47)
[2019-05-09] MEDS: potassium Cl 20 mEq SR tablet PO SCH (08:47)
[2019-05-09] MEDS: doxazosin mesylate 2mg tablet PO SCH ×2 (08:48→20:18)
[2019-05-09] MEDS: duloxetine 30mg CAPSULE.DR PO SCH (08:48)
[2019-05-09] MEDS: aspirin 81mg tab.chew PO SCH (08:48)
[2019-05-09] MEDS: LEVOTHYROXINE 88 MCG PO SCH (08:51)
[2019-05-09] MEDS: insulin Lispro (HumaLOG) vial - multi-dose SQ SCH (13:07)
[2019-05-09] MEDS: polyethylene glycol 3350 17gm powd pack PO SCH (14:37)
[2019-05-09] MEDS: diphenhydrAMINE 50 mg/ml inj IV PRN ×2 (14:37→22:56)
--- NOTE | 2019-05-09 18:15 | NUR ---
Problems reprioritized. Patient report given, questions answered & plan of care reviewed with Randall SCHOFIELD.
--- NOTE | 2019-05-09 18:18 | NUR ---
New hire documentation: I have reviewed and agree with all interventions, assessments performed and documented by Cathy SCHOFIELD.
--- NOTE | 2019-05-09 18:20 | NUR ---
Patient in room PCU 3018. I have received report from Avelina SCHOFIELD and had the opportunity to ask questions and assume patient care.
--- NOTE | 2019-05-09 18:42 | NUR ---
pt's blood glucose at 1700 was 96, pt ate very little for dinner and does not want to be covered with 2 units of insulin.
[2019-05-09] MEDS: nortriptyline 10mg capsule PO SCH (20:18)
[2019-05-09] MEDS: insulin glargine (Lantus) pen - multi-dose SQ SCH (21:00)
[2019-05-10 03:00] VITALS: BP 108/64
[2019-05-10 05:34] LABS: ALANINE AMINOTRANSFERASE 204 U/L (12-78); ALBUMIN 2.6 G/DL (3.4-5.0); ALBUMIN/GLOBULIN RATIO 0.9 (1.1-1.5); ALKALINE PHOSPHATASE 109 IU/L (46-116); ANION GAP 8 (8-16); ASPARTATE AMINO TRANSFERASE 87 U/L (10-37); BILIRUBIN,TOTAL 0.5 MG/DL (0.1-1.0); BLOOD UREA NITROGEN 22 MG/DL (7-18); BUN/CREATININE RATIO 22.7 (5.4-32.0); CALCIUM 7.7 MG/DL (8.5-10.1); CHLORIDE 95 MMOL/L (99-107); CREATININE 0.97 MG/DL (0.60-1.10); GLUCOSE 105 MG/DL (70-104); MAGNESIUM 2.3 MG/DL (1.5-2.4); PHOSPHORUS 2.4 MG/DL (2.3-4.5); POTASSIUM 4.4 MMOL/L (3.5-5.1); SODIUM 127 MMOL/L (135-145); TOTAL CARBON DIOXIDE 24.4 MMOL/L (24-32); TOTAL PROTEIN 5.4 G/DL (6.4-8.2); eGFR 75 ML/MIN
[2019-05-10 06:00] VITALS: BP 133/76
[2019-05-10 06:16] LABS: BASOPHILS # (AUTO) 0.1 X10'3 (0-0.2); BASOPHILS % (AUTO) 0.6 % (0-1); EOSINOPHILS # (AUTO) 0.6 X10'3 (0-0.9); EOSINOPHILS % (AUTO) 6.4 % (0-6); HEMATOCRIT 30.9 % (42.0-52.0); HEMOGLOBIN 10.2 g/dl (14.0-17.9); LYMPHOCYTES # (AUTO) 0.4 X10'3 (1.1-4.8); LYMPHOCYTES % (AUTO) 4.6 % (21-51); MEAN CORPUSCULAR HEMOGLOBIN 26.1 PG (27.0-31.0); MEAN CORPUSCULAR HGB CONC 33.1 g/dL (33.0-36.5); MEAN CORPUSCULAR VOLUME 78.8 FL (78-98); MEAN PLATELET VOLUME 7.3 FL (7.4-10.4); MONOCYTES # (AUTO) 0.3 X10'3 (0-0.9); MONOCYTES % (AUTO) 3.2 % (2-12); NEUTROPHILS # (AUTO) 8.2 X10'3 (1.8-7.7); NEUTROPHILS % (AUTO) 85.2 % (42-75); PLATELET COUNT 206 X10'3 (140-440); RED BLOOD COUNT 3.92 X10'6 (4.70-6.10); RED CELL DISTRIBUTION WIDTH 18.1 % (11.5-14.5); WHITE BLOOD COUNT 9.6 X10'3 (4.5-11.0)
--- NOTE | 2019-05-10 06:26 | NUR ---
[place] documentation: I have reviewed and agree with all interventions, assessments performed and documented by Randall SCHOFIELD.
--- NOTE | 2019-05-10 06:26 | NUR ---
Problems reprioritized. Patient report given, questions answered & plan of care reviewed with Zoe RN.
--- NOTE | 2019-05-10 06:43 | NUR ---
Patient in room PCU 3020. I have received report from Randall RN and CHANDU Lagos and had the opportunity to ask questions and assume patient care.
[2019-05-10] MEDS: carVEDilol 3.125mg tablet PO SCH ×2 (08:57→20:27)
[2019-05-10] MEDS: spironolactone 25 MG tablet PO SCH (08:57)
[2019-05-10] MEDS: potassium Cl 20 mEq SR tablet PO SCH (08:57)
[2019-05-10] MEDS: atorvastatin 10mg tablet PO SCH (08:57)
[2019-05-10] MEDS: duloxetine 30mg CAPSULE.DR PO SCH (08:57)
[2019-05-10] MEDS: furosemide 20 MG/2 ML vial IV SCH ×2 (08:57→20:26)
[2019-05-10] MEDS: LEVOTHYROXINE 88 MCG PO SCH (08:58)
[2019-05-10] MEDS: aspirin 81mg tab.chew PO SCH (08:58)
[2019-05-10] MEDS: doxazosin mesylate 2mg tablet PO SCH ×2 (08:58→20:26)
[2019-05-10] MEDS: losartan 50mg tablet PO SCH (08:58)
[2019-05-10 11:00] VITALS: BP 110/51
[2019-05-10] MEDS: diphenhydrAMINE 50 mg/ml inj IV PRN (11:30)
--- NOTE | 2019-05-10 13:55 | NUR ---
reassessment: Pt Na up to 127 on 1200ml fluid-restriction PO fluctuating up to 100% but overall 60-75% avg meals; likely meeting needs. [facility] 05/09. Will continue to monitor. Recommendations: 1) Continue CHO controlled diet 2) Monitor need for ONS 3) Routine bowel care 4) Wt per rx Addendum: 05/10/19 at [address] Amended: Links added.
[2019-05-10 15:00] VITALS: BP 127/70
[2019-05-10] MEDS: polyethylene glycol 3350 17gm powd pack PO SCH (15:00)
[2019-05-10 18:00] VITALS: BP 70/52
--- NOTE | 2019-05-10 18:29 | NUR ---
Problems reprioritized. Patient report given, questions answered & plan of care reviewed with CHANDU Haywood.
[2019-05-10] MEDS: nortriptyline 10mg capsule PO SCH (20:26)
[2019-05-10] MEDS: insulin glargine (Lantus) pen - multi-dose SQ SCH (21:00)
[2019-05-10 22:00] VITALS: BP 106/62
[2019-05-11 03:00] VITALS: BP 111/67
[2019-05-11 05:15] LABS: BASOPHILS % (AUTO) 0.3 % (0-1); EOSINOPHILS # (AUTO) 0.5 X10'3 (0-0.9); EOSINOPHILS % (AUTO) 6.7 % (0-6); HEMATOCRIT 31.4 % (42.0-52.0); HEMOGLOBIN 10.4 g/dl (14.0-17.9); LYMPHOCYTES # (AUTO) 0.5 X10'3 (1.1-4.8); LYMPHOCYTES % (AUTO) 6.6 % (21-51); MEAN CORPUSCULAR HEMOGLOBIN 26.2 PG (27.0-31.0); MEAN CORPUSCULAR VOLUME 79.4 FL (78-98); MEAN PLATELET VOLUME 7.6 FL (7.4-10.4); MONOCYTES # (AUTO) 0.4 X10'3 (0-0.9); MONOCYTES % (AUTO) 5.4 % (2-12); NEUTROPHILS # (AUTO) 6.3 X10'3 (1.8-7.7); PLATELET COUNT 223 X10'3 (140-440); RED BLOOD COUNT 3.95 X10'6 (4.70-6.10); RED CELL DISTRIBUTION WIDTH 18.7 % (11.5-14.5); WHITE BLOOD COUNT 7.8 X10'3 (4.5-11.0)
[2019-05-11 05:36] LABS: ALBUMIN 2.8 G/DL (3.4-5.0); ANION GAP 5 (8-16); BLOOD UREA NITROGEN 23 MG/DL (7-18); BUN/CREATININE RATIO 23.2 (5.4-32.0); CHLORIDE 95 MMOL/L (99-107); CREATININE 0.99 MG/DL (0.60-1.10); GLUCOSE 113 MG/DL (70-104); MAGNESIUM 1.9 MG/DL (1.5-2.4); PHOSPHORUS 2.9 MG/DL (2.3-4.5); POTASSIUM 4.2 MMOL/L (3.5-5.1); SODIUM 130 MMOL/L (135-145); TOTAL CARBON DIOXIDE 29.7 MMOL/L (24-32); eGFR 73 ML/MIN
[2019-05-11 06:00] VITALS: BP 121/70
--- NOTE | 2019-05-11 06:00 | NUR ---
Problems reprioritized. Patient report given, questions answered & plan of care reviewed with CHANDU Casillas. Pt stable at shift change
[2019-05-11 06:46] LABS: ANISOCYTOSIS 2+; MICROCYTOSIS 1+; PLATELET ESTIMATE NORMAL
[2019-05-11 06:47] LABS: POLYCHROMASIA 1+
--- NOTE | 2019-05-11 07:03 | NUR ---
Patient in room PCU 3018. I have received report from Yobany SCHOFIELD and had the opportunity to ask questions and assume patient care.
[2019-05-11] MEDS: furosemide 20 MG/2 ML vial IV SCH ×2 (08:04→19:46)
[2019-05-11] MEDS: doxazosin mesylate 2mg tablet PO SCH ×2 (08:04→19:45)
[2019-05-11] MEDS: carVEDilol 3.125mg tablet PO SCH ×2 (08:04→19:45)
[2019-05-11] MEDS: spironolactone 25 MG tablet PO SCH (08:04)
[2019-05-11] MEDS: aspirin 81mg tab.chew PO SCH (08:04)
[2019-05-11] MEDS: duloxetine 30mg CAPSULE.DR PO SCH (08:04)
[2019-05-11] MEDS: atorvastatin 10mg tablet PO SCH (08:05)
[2019-05-11] MEDS: potassium Cl 20 mEq SR tablet PO SCH (08:05)
[2019-05-11] MEDS: losartan 50mg tablet PO SCH (08:05)
[2019-05-11] MEDS: LEVOTHYROXINE 88 MCG PO SCH (08:06)
[2019-05-11] MEDS: insulin Lispro (HumaLOG) vial - multi-dose SQ SCH ×2 (08:22→18:47)
[2019-05-11 11:00] VITALS: BP 109/64
--- NOTE | 2019-05-11 11:18 | NUR ---
Problems reprioritized. Patient report given, questions answered & plan of care reviewed with Cathy SCHOFIELD.
[2019-05-11] MEDS ORDERED: LEVOTHYROXINE 88 MCG PO SCH (12:46)
[2019-05-11 15:00] VITALS: BP 123/79
[2019-05-11] MEDS: polyethylene glycol 3350 17gm powd pack PO SCH (15:17)
--- NOTE | 2019-05-11 18:23 | NUR ---
Received report from Cathy SCHOFIELD pt is awake eating dinner, visitor at bedside, in no apparent distress,
--- NOTE | 2019-05-11 18:25 | NUR ---
Problems reprioritized. Patient report given, questions answered & plan of care reviewed with CHANDU Shrestha.
[2019-05-11 18:30] VITALS: BP 127/86
[2019-05-11] MEDS: diphenhydrAMINE 50 mg/ml inj IV PRN (19:45)
[2019-05-11] MEDS: nortriptyline 10mg capsule PO SCH (20:56)
[2019-05-11] MEDS: insulin glargine (Lantus) pen - multi-dose SQ SCH (20:59)
[2019-05-11 22:30] VITALS: BP 105/54
[2019-05-12 02:30] VITALS: BP 115/67
[2019-05-12] MEDS: diphenhydrAMINE 50 mg/ml inj IV PRN (02:31)
[2019-05-12 05:15] LABS: BASOPHILS % (AUTO) 0.6 % (0-1); EOSINOPHILS # (AUTO) 0.4 X10'3 (0-0.9); EOSINOPHILS % (AUTO) 5.4 % (0-6); HEMATOCRIT 31.1 % (42.0-52.0); HEMOGLOBIN 10.1 g/dl (14.0-17.9); LYMPHOCYTES # (AUTO) 1.1 X10'3 (1.1-4.8); MEAN CORPUSCULAR HEMOGLOBIN 25.9 PG (27.0-31.0); MEAN CORPUSCULAR HGB CONC 32.6 g/dL (33.0-36.5); MEAN CORPUSCULAR VOLUME 79.6 FL (78-98); MEAN PLATELET VOLUME 7.3 FL (7.4-10.4); MONOCYTES # (AUTO) 0.7 X10'3 (0-0.9); MONOCYTES % (AUTO) 8.2 % (2-12); NEUTROPHILS # (AUTO) 5.9 X10'3 (1.8-7.7); NEUTROPHILS % (AUTO) 72.8 % (42-75); PLATELET COUNT 237 X10'3 (140-440); RED BLOOD COUNT 3.91 X10'6 (4.70-6.10); RED CELL DISTRIBUTION WIDTH 18.5 % (11.5-14.5); WHITE BLOOD COUNT 8.1 X10'3 (4.5-11.0)
[2019-05-12 05:36] LABS: ALBUMIN 2.7 G/DL (3.4-5.0); ANION GAP 5 (8-16); BLOOD UREA NITROGEN 21 MG/DL (7-18); BUN/CREATININE RATIO 19.8 (5.4-32.0); CALCIUM 7.8 MG/DL (8.5-10.1); CHLORIDE 96 MMOL/L (99-107); CREATININE 1.06 MG/DL (0.60-1.10); GLUCOSE 111 MG/DL (70-104); MAGNESIUM 1.9 MG/DL (1.5-2.4); PHOSPHORUS 3.1 MG/DL (2.3-4.5); SODIUM 132 MMOL/L (135-145); TOTAL CARBON DIOXIDE 31.1 MMOL/L (24-32); eGFR 68 ML/MIN
[2019-05-12 06:00] VITALS: BP 120/68
--- NOTE | 2019-05-12 06:10 | NUR ---
Patient in room PCU 3018. I have received report from Qian SCHOFIELD and had the opportunity to ask questions and assume patient care.
--- NOTE | 2019-05-12 06:11 | NUR ---
Gave report to Jose Juan SCHOFIELD pt is resting on RA hooked up to bedside mobile #[id number] in no apparent distress, call light and items of freq use within reach.
[2019-05-12] MEDS: furosemide 20 MG/2 ML vial IV SCH (08:26)
[2019-05-12] MEDS: doxazosin mesylate 2mg tablet PO SCH (08:26)
[2019-05-12] MEDS: aspirin 81mg tab.chew PO SCH (08:26)
[2019-05-12] MEDS: potassium Cl 20 mEq SR tablet PO SCH (08:26)
[2019-05-12] MEDS: spironolactone 25 MG tablet PO SCH (08:27)
[2019-05-12] MEDS: losartan 50mg tablet PO SCH (08:27)
[2019-05-12] MEDS: duloxetine 30mg CAPSULE.DR PO SCH (08:27)
[2019-05-12] MEDS: atorvastatin 10mg tablet PO SCH (08:27)
[2019-05-12] MEDS: carVEDilol 3.125mg tablet PO SCH (08:27)
[2019-05-12] MEDS: insulin Lispro (HumaLOG) vial - multi-dose SQ SCH ×2 (08:43→13:39)
[2019-05-12 11:00] VITALS: BP 102/56
[2019-05-12] MEDS ORDERED: SPIR25TA PO (13:48)
[2019-05-12] MEDS ORDERED: FURO40TA4 PO (13:48)
[2019-05-12] MEDS ORDERED: LANTUS SQ (13:48)
[2019-05-12] MEDS ORDERED: LOSA50TA64 PO (13:48)
[2019-05-12] MEDS ORDERED: COR3.125T PO (13:48)
[2019-05-12] MEDS ORDERED: DIPH-423 PO (13:48)
[2019-05-12] MEDS ORDERED: INSU100V11 SQ (13:48)
[2019-05-12 15:00] VITALS: BP 100/51
[2019-05-12] MEDS: polyethylene glycol 3350 17gm powd pack PO SCH (15:40)
--- NOTE | 2019-05-12 17:55 | NUR ---
Pt transfered to [facility]. IV removed, canula intact. Tele leads removed. Pt's belongings gathered and sent with Pt. Report called to [facility] and Nurse informed on Pt's condition and plan of care. Pt wheeled down to lobby in wheelchair by [employer] personal and then left in medi van to [facility].
== END 2019-05-12 17:56 | DRG 286 ==
LOC: ER 02:30 → ED HOLD 04:26 → ORTHO 4S 04:30 → ICU 2S 15:41 → PCU 3S 05-05 19:06
PROVIDERS: ADMIT Internal Medicine; ATTEND Internal Medicine Critical Care Medicine
PROC: 4A023N8 Measurement of Cardiac Sampling and Pressure, Bilateral, Percutaneous Approach (ICD-10-PCS; principal; 2019-05-06)
PROC: B2111ZZ Fluoroscopy of Multiple Coronary Arteries using Low Osmolar Contrast (ICD-10-PCS; 2019-05-06)
PROC: B2151ZZ Fluoroscopy of Left Heart using Low Osmolar Contrast (ICD-10-PCS; 2019-05-06)
DX: I42.8 Other cardiomyopathies (principal); I50.23 Acute on chronic systolic (congestive) heart failure; E87.1 Hypo-osmolality and hyponatremia; I47.1 Supraventricular tachycardia; I47.2 Ventricular tachycardia; E11.9 Type 2 diabetes mellitus without complications; I25.5 Ischemic cardiomyopathy; I11.0 Hypertensive heart disease with heart failure; C61 Malignant neoplasm of prostate; D50.9 Iron deficiency anemia, unspecified; E78.5 Hyperlipidemia, unspecified; E86.9 Volume depletion, unspecified; E89.0 Postprocedural hypothyroidism; F32.9 Major depressive disorder, single episode, unspecified; I25.10 Atherosclerotic heart disease of native coronary artery without angina pectoris; F41.9 Anxiety disorder, unspecified; R33.9 Retention of urine, unspecified; D64.9 Anemia, unspecified; I27.20 Pulmonary hypertension, unspecified; I35.8 Other nonrheumatic aortic valve disorders; Z79.4 Long term (current) use of insulin; Z80.7 Family history of other malignant neoplasms of lymphoid, hematopoietic and related tissues; Z82.3 Family history of stroke; Z85.46 Personal history of malignant neoplasm of prostate; Z87.891 Personal history of nicotine dependence; Z92.3 Personal history of irradiation; Z88.0 Allergy status to penicillin; Z88.8 Allergy status to other drugs, medicaments and biological substances; Z79.899 Other long term (current) drug therapy
CPT/HCPCS: 36415; 71045; 74018; 80048; 80053; 81001; 82088; 82803; 82948; 83036; 83540; 83550; 83735; 83880; 83930; 83935; 84100; 84132; 84133; 84145; 84295; 84300; 84443; 84484; 85014; 85025; 87081; 93005; 93306; 93460; 96374; 96375; 97110; 97112; 97116; 97161; 97530; 99152; 99153; 99285; A4620; A5120; A6258; C1769; C1894; G0378; J1200; J1250; J1644; J1720; J1756; J1815; J1940; J2001; J2250; J2270; J2405; J2930; J3010; J3475; J3490; J7030; J7131; Q0163; Q9967